=== PATIENT | male | born 1995 | race Caucasian/White ===

== ENCOUNTER 2017-06-25 00:37 | Emergency (ER) | payer OTHER ==
[~2017-06-25] VITALS: Ht 185.4 cm; Wt 80.0 kg
[2017-06-25 01:08] VITALS: BP 140/62; PULSE 105; RESP 18; TEMP 102.8; TEMP 98.6; O2SAT 100
[2017-06-25] MEDS ORDERED: KETOROLAC TROMETHAMINE 30 MG/ML (IVP) VIAL IV PUSH ONE (03:30)
[2017-06-25] MEDS ORDERED: SODIUM CHLOR 0.9% 1000 ML INJ 1,000 ML IV ONE (03:30)
[2017-06-25 03:51] LABS: AUTOMATED NEUTROPHIL # 12.2 TH/MM3 (1.8-7.7); BASOPHIL % 0.3 % (0.0-2.0); HEMATOCRIT 42.2 % (39.0-51.0); HEMOGLOBIN 14.8 GM/DL (13.0-17.0); LYMPH % 6.5 % (9.0-44.0); LYMPHOCYTE # 0.9 TH/MM3 (1.0-4.8); MEAN CELL VOLUME 87.8 FL (80.0-100.0); MEAN CORPUSCULAR HEMOGLOBIN 30.8 PG (27.0-34.0); MEAN CORPUSCULAR HGB CONC 35.1 % (32.0-36.0); MEAN PLATELET VOLUME 8.9 FL (7.0-11.0); MONO % 6.9 % (0.0-8.0); NEUT % 86.3 % (16.0-70.0); PLATELET COUNT 195 TH/MM3 (150-450); RED CELL DISTRIBUTION WIDTH 13.3 % (11.6-17.2); WHITE BLOOD COUNT 14.1 TH/MM3 (4.0-11.0)
[2017-06-25 03:52] LABS: BILIRUBIN, URINE NEG (NEG); BLOOD, URINE NEG (NEG); GLUCOSE,URINE NEG (NEG); KETONE, URINE NEG (NEG); NITRITE,URINE NEG (NEG); URINE COLOR YELLOW (YELLW/STRAW); URINE LEUKOCYTE ESTERASE NEG (NEG)
[2017-06-25 04:06] LABS: ALBUMIN 4.7 GM/DL (3.4-5.0); ALT (GPT) 15 U/L (9-52); AST (GOT) 16 U/L (15-39); BICARBONATE 21.2 MEQ/L (21.0-32.0); BLOOD UREA NITROGEN 11 MG/DL (7-18); CALCIUM 9.5 MG/DL (8.5-10.1); CHLORIDE 107 MEQ/L (98-107); CREATININE 1.31 MG/DL (0.60-1.30); GLOMERULAR FILTRATION RATE 70 ML/MIN (>89); GLUCOSE,RANDOM 110 MG/DL (74-106); SODIUM (NA) 140 MEQ/L (136-145)
[2017-06-25 04:08] LABS: ALKALINE PHOSPHATASE 45 U/L (45-117); TOTAL BILIRUBIN ADULT 2.4 MG/DL (0.2-1.0); TOTAL PROTEIN 7.9 GM/DL (6.4-8.2)
[2017-06-25 04:22] VITALS: TEMP 100.2
[2017-06-25] MEDS ORDERED: MORPHINE SULFATE 4 MG/ML INJ IV PUSH ONE (05:15)
[2017-06-25 05:22] VITALS: BP 130/61; PULSE 86; RESP 18; O2SAT 97
--- NOTE | 2017-06-25 05:26 | RADRPT ---
EXAM DATE/TIME: 06/25/2017 03:57 [facility] COMPARISON: No previous studies available for comparison. INDICATIONS : Fever and productive cough. MEDICAL HISTORY : None. SURGICAL HISTORY : None. ENCOUNTER: Initial ACUITY: 1 day PAIN SCORE: 0/10 LOCATION: Bilateral chest FINDINGS: PA and lateral views of the chest demonstrate the lungs to be symmetrically aerated without evidence of mass, infiltrate or effusion. The cardiomediastinal contours are unremarkable. Osseous structure s are intact. CONCLUSION: No acute cardiopulmonary process. Tl Matute MD on June 25, 2017 at 5:24 Board Certified Radiologist. This report was verified electronically.
--- NOTE | 2017-06-25 05:47 | RADRPT ---
EXAM DATE/TIME: 06/25/2017 05:12 [facility] COMPARISON: No previous studies available for comparison. INDICATIONS : Abdominal pain and fever. ORAL CONTRAST: No oral contrast ingested. RADIATION DOSE: 5.67 CTDIvol (mGy) MEDICAL HISTORY : None SURGICAL HISTORY : None. ENCOUNTER: Initial ACUITY: 1 day PAIN SCALE: 6/10 LOCATION: abdomen TECHNIQUE: Volumetric scanning of the abdomen and pelvis was performed. Using automated exposure control and ad justment of the mA and/or kV according to patient size, radiation dose was kept as low as reasonably achievable to obtain optimal diagnostic quality images. DICOM format image data is available electro nically for review and comparison. FINDINGS: LOWER LUNGS: The visualized lower lungs are clear. LIVER: Homogeneous density without lesion. There is no dilation of the biliary tree. No calcified gallston es. SPLEEN: Somewhat prominent at 14 cm in the SI dimension. PANCREAS: Within normal limits. KIDNEYS: Normal in size and shape. There is no mass, stone, or hydronephrosis. ADRENAL GLANDS: Within normal limits. VASCULAR: There is no aortic aneurysm. BOWEL/MESENTERY: The stomach, small bowel, and colon demonstrate no acute abnormality. There is no free intraperitone al air or fluid. ABDOMINAL WALL: Within normal limits. RETROPERITONEUM: There is no lymphadenopathy. BLADDER: No wall thickening or mass. REPRODUCTIVE: Within normal limits. INGUINAL: There is no lymphadenopathy or hernia. MUSCULOSKELETAL: Within normal limits for patient age. CONCLUSION: 1. Spleen is slightly prominent at 14 cm. 2. Otherwise negative. No acute intraperitoneal or pelvic process to explain current clinical symptom sandeep Matute MD on June 25, 2017 at 5:44 Board Certified Radiologist. This report was verified electronically.
[2017-06-25] MEDS ORDERED: CYCL10TA PO (07:37)
--- NOTE | 2017-06-25 07:37 | PD ---
HPI Chief Complaint: Headache Time Seen by Provider: 03:04 Travel History International Travel<30 days: No Contact w/Intl Traveler<30days: No Traveled to known affect area: No History of Present Illness HPI Patient is a 22-year-old male who comes in complaining of back pain and fever. He says that he has felt feverish all day since coming back from [place]. Says he also has some low back pain. He denies any IV drug abuse. He says he has a history of chronic back pain, but is much worse today. He has been taking ibuprofen without relief. He denies nausea or vomiting. He denies any numbness or tingling. He denies cough or cold symptoms. He denies any sick contacts. Severity is mild to moderate. PFSH Past Medical History Medical History: Denies Significant Hx Diminished Hearing: No Tetanus Vaccination: < 5 Years Influenza Vaccination: No Past Surgical History Surgical History: No Previous Surgery Social History Alcohol Use: No Tobacco Use: No Substance Use: No Allergies-Medications (Allergen,Severity, Reaction): Coded Allergies: No Known Allergies (Unverified , 06/25/17) Review of Systems Except as stated in HPI: all other systems reviewed are Neg General / Constitutional: Positive: Fever HENT: Positive: Headaches Cardiovascular: No: Chest Pain or Discomfort Respiratory: No: Cough, Shortness of Breath Gastrointestinal: No: Vomiting, Abdominal Pain Musculoskeletal: Positive: Pain Skin: No Rash, No Change in Pigmentation Neurologic: No: Weakness, Dizziness Physical Exam Narrative GENERAL: Awake and alert, no acute distress. SKIN: Focused skin assessment warm/dry. No wounds or signs of infection. HEAD: Atraumatic. Normocephalic. EYES: Pupils equal and round. No scleral icterus. Extraocular movements intact. ENT: Mucous membranes pink and moist. NECK: Trachea midline. No JVD. CARDIOVASCULAR: Regular rate and rhythm. No murmur appreciated. RESPIRATORY: No accessory muscle use. Clear to auscultation. Breath sounds equal bilaterally. GASTROINTESTINAL: Abdomen soft, non-tender, nondistended. MUSCULOSKELETAL: No obvious deformities. No clubbing. No cyanosis. No edema. No tenderness to the thoracic or lumbar spine. NEUROLOGICAL: Awake and alert. No obvious cranial nerve deficits. Motor grossly within normal limits. Normal speech. PSYCHIATRIC: Appropriate mood and affect; insight and judgment normal. Data Data Last Documented VS Vital Signs Date Time Temp Pulse Resp B/P (MAP) Pulse Ox O2 Delivery O2 Flow Rate FiO2 06/25/17 06:33 06/25/17 05:22 86 18 97 Room Air 06/25/17 04:22 100.2 Orders Orders Iv Access Insert/Monitor (06/25/17 03:23) Complete Blood Count With Diff (06/25/17 03:23) Comprehensive Metabolic Panel (06/25/17 03:23) Urinalysis - C+S If Indicated (06/25/17 03:23) Influenzae A/B Antigen (06/25/17 03:23) Chest, Pa & Lat (06/25/17 ) Sodium Chlor 0.9% 1000 Ml Inj (Ns 1000 M (06/25/17 03:30) Ketorolac Inj (Toradol Inj) (06/25/17 03:30) Group A Rapid Strep Screen (06/25/17 03:23) Strep Culture (Group A) (06/25/17 03:29) Ct Abd/Pel W/O Iv Contrast (06/25/17 ) Lipase (06/25/17 05:02) Morphine Inj (Morphine Inj) (06/25/17 05:15) Labs Laboratory Tests Test 06/25/17 03:29 White Blood Count 14.1 TH/MM3 Red Blood Count 4.80 MIL/MM3 Hemoglobin 14.8 GM/DL Hematocrit 42.2 % Mean Corpuscular Volume 87.8 FL Mean Corpuscular Hemoglobin 30.8 PG Mean Corpuscular Hemoglobin Concent 35.1 % Red Cell Distribution Width 13.3 % Platelet Count 195 TH/MM3 Mean Platelet Volume 8.9 FL Neutrophils (%) (Auto) 86.3 % Lymphocytes (%) (Auto) 6.5 % Monocytes (%) (Auto) 6.9 % Eosinophils (%) (Auto) 0.0 % Basophils (%) (Auto) 0.3 % Neutrophils # (Auto) 12.2 TH/MM3 Lymphocytes # (Auto) 0.9 TH/MM3 Monocytes # (Auto) 1.0 TH/MM3 Eosinophils # (Auto) 0.0 TH/MM3 Basophils # (Auto) 0.0 TH/MM3 CBC Comment DIFF FINAL Differential Comment Urine Color YELLOW Urine Turbidity CLEAR Urine pH 8.0 Urine Specific [place] 1.022 Urine Protein TRACE mg/dL Urine Glucose (UA) NEG mg/dL Urine Ketones NEG mg/dL Urine Occult Blood NEG Urine Nitrite NEG Urine Bilirubin NEG Urine Urobilinogen LESS THAN 2.0 MG/DL Urine Leukocyte Esterase NEG Urine RBC LESS THAN 1 /hpf Microscopic Urinalysis Comment CULT NOT INDICATED Blood Urea Nitrogen 11 MG/DL Creatinine 1.31 MG/DL Random Glucose 110 MG/DL Total Protein 7.9 GM/DL Albumin 4.7 GM/DL Calcium Level 9.5 MG/DL Alkaline Phosphatase 45 U/L Aspartate Amino Transf (AST/SGOT) 16 U/L Alanine Aminotransferase (ALT/SGPT) 15 U/L Total Bilirubin 2.4 MG/DL Sodium Level 140 MEQ/L Potassium Level 3.9 MEQ/L Chloride Level 107 MEQ/L Carbon Dioxide Level 21.2 MEQ/L Anion Gap 12 MEQ/L Estimat Glomerular Filtration Rate 70 ML/MIN Lipase 169 U/L MDM Medical Decision Making Medical Screen Exam Complete: Yes Emergency Medical Condition: Yes Differential Diagnosis Influenza versus pneumonia versus UTI versus viral illness Narrative Course Patient is a 22-year-old male who comes in complaining of fever and back pain. Exam shows no acute abnormalities. IV established, labs sent. Labs showed elevated white blood cell count of 14 and a total bilirubin of 2.4. CT abdomen pelvis performed shows no acute abnormalities other than a minimally enlarged spleen. Chest x-ray shows no acute abnormalities. Patient given IV fluids, Toradol, morphine. Reports feeling better. He is informed of the results. Offered an ultrasound of his gallbladder, but would like to just follow up with his doctor. Advised he could have mono, and to avoid any contact sports. Advised follow-up with his doctor. Advised to drink plenty of fluids. Advised to take Tylenol or ibuprofen as needed for pain and fever. Advised return at anytime for any worsening symptoms. Diagnosis Primary Impression: Viral illness Patient Instructions: General Instructions, Viral Syndrome (ED) Departure Forms: Tests/Procedures Additional Instructions: Your total bilirubin was elevated to 2.4 today. Your liver enzymes are normal. Please follow-up with your doctor regarding this. Take Tylenol or ibuprofen as needed for pain or fever. Drink plenty of fluids. Return to the ED as needed for any worsening symptoms. Scripts Cyclobenzaprine (Flexeril) 10 Mg Tab 10 MG PO TID for Muscle Spasm, #10 TAB 0 Refills Prov: Tatiana Onofre MD 06/25/17 Disposition: 01 DISCHARGE HOME Condition: Stable Tatiana Onofre MD Jun 25, 2017 07:37
[2017-06-25 07:45] VITALS: BP 106/58; PULSE 72; RESP 18; O2SAT 98
== END 2017-06-25 08:51 | disposition home or self-care (01) ==
LOC: NEPE 00:37
DX: B34.9 Viral infection, unspecified (principal); M54.5 Low back pain
CPT/HCPCS: 71046; 74176; 80053; 81001; 83690; 85025; 87081; 87804; 87880; 96361; 96374; 96375; 99285; J1885; J2270; J7030